=== PATIENT | female | born 1950 | race Caucasian/White ===

== ENCOUNTER 2020-11-02 21:19 | Inpatient (IN) | payer OTHER ==
[~2020-11-02] VITALS: Ht 162.6 cm; Wt 76.2 kg
[2020-11-02 23:56] LABS: HEMOGLOBIN 13.4 gm/dl (12.3-15.3); RED BLOOD COUNT 4.07 M/UL (4.00-5.10); WHITE BLOOD COUNT 13.3 K/UL (4.5-11.0)
[2020-11-03] MEDS ORDERED: AMLODIPINE BESY10 MG PO (02:12)
[2020-11-03] MEDS ORDERED: HYGROTON TAB 2525 MG PO (02:13)
[2020-11-03] MEDS ORDERED: VALSARTAN320 MG PO (02:13)
[2020-11-03] MEDS ORDERED: PRILOSEC OTC20 MG PO (02:14)
[2020-11-03 08:08] LABS: HEMOGLOBIN 12.1 gm/dl (12.3-15.3); RED BLOOD COUNT 3.74 M/UL (4.00-5.10); WHITE BLOOD COUNT 9.4 K/UL (4.5-11.0)
== END 2020-11-04 00:11 | disposition short-term general hospital (02) | DRG 280 ==
LOC: ER1 21:19 → PROG CARE 11-03 00:56 → CDU 11-03 00:56 → PROG CARE 11-03 02:21
PROVIDERS: Internal Medicine; Physician Assistant; ADMIT Internal Medicine
PROC: 4A023N7 Measurement of Cardiac Sampling and Pressure, Left Heart, Percutaneous Approach (ICD-10-PCS; principal; 2020-11-03)
PROC: B211YZZ Fluoroscopy of Multiple Coronary Arteries using Other Contrast (ICD-10-PCS; 2020-11-03)
PROC: B215YZZ Fluoroscopy of Left Heart using Other Contrast (ICD-10-PCS; 2020-11-03)
PROC: B41FYZZ Fluoroscopy of Right Lower Extremity Arteries using Other Contrast (ICD-10-PCS; 2020-11-03)
DX: I21.4 Non-ST elevation (NSTEMI) myocardial infarction (principal); I50.21 Acute systolic (congestive) heart failure; N17.9 Acute kidney failure, unspecified; I13.10 Hypertensive heart and chronic kidney disease without heart failure, with stage 1 through stage 4 chronic kidney disease, or unspecified chronic kidney disease; Z20.822 Contact with and (suspected) exposure to COVID-19; I25.10 Atherosclerotic heart disease of native coronary artery without angina pectoris; K21.9 Gastro-esophageal reflux disease without esophagitis; I25.5 Ischemic cardiomyopathy; N18.30 Chronic kidney disease, stage 3 unspecified; F17.210 Nicotine dependence, cigarettes, uncomplicated; Z85.3 Personal history of malignant neoplasm of breast; Z79.899 Other long term (current) drug therapy; Z82.49 Family history of ischemic heart disease and other diseases of the circulatory system
CPT/HCPCS: 36415; 71046; 80048; 80053; 80061; 82436; 82550; 82553; 83036; 83605; 83735; 83874; 83880; 83935; 84100; 84133; 84300; 84439; 84443; 84484; 84550; 85025; 85027; 85347; 85379; 85610; 85730; 86140; 93005; 99152; 99153; 99285; C1769; C1887; C1894; J1644; J1940; J2250; J3010; J7030; J7040; Q9965; U0002

== ENCOUNTER 2021-05-12 17:03 | Inpatient (IN) | payer OTHER ==
[~2021-05-12] VITALS: Ht 167.6 cm
[~2021-05-12 17:03] MED LIST: AMLODIPINE BESY10 MG PO; HYGROTON TAB 2525 MG PO; PRILOSEC OTC20 MG PO; VALSARTAN320 MG PO
[2021-05-12 17:49] LABS: HEMOGLOBIN 12.8 gm/dl (12.3-15.3); RED BLOOD COUNT 3.85 M/UL (4.00-5.10)
[2021-05-12 18:06] LABS: WHITE BLOOD COUNT 32.8 K/UL (4.5-11.0)
[2021-05-13 03:01] LABS: HEMOGLOBIN 10.1 gm/dl (12.3-15.3); RED BLOOD COUNT 3.01 M/UL (4.00-5.10); WHITE BLOOD COUNT 23.5 K/UL (4.5-11.0)
[2021-05-13] MEDS ORDERED: SPIRONOLACTONE25 MG PO (11:01)
[2021-05-13] MEDS ORDERED: CLOPIDOGREL75 MG PO (11:01)
[2021-05-13] MEDS ORDERED: SUCRALFATE1 GM PO (11:01)
[2021-05-13] MEDS ORDERED: ELIQUIS2.5 MG PO (11:02)
[2021-05-13] MEDS ORDERED: ASPIRIN EC81 MG PO (11:03)
[2021-05-13] MEDS ORDERED: ATORVASTATIN CA20 MG PO (11:17)
--- NOTE | 2021-05-14 00:26 | NUR ---
2300- MD CAME TO BEDSIDE TO EXAMINE PATIENT. GLUCOSE WAS 148. HR WAS DOWN TO 110'S AFTER DEMEROL GIVEN. BLOOD PRESSURE IN THE 90'S. THE PATIENT WAS NOT RESPONDING TO MD'S QUESTIONS; NOR HAD SHE BEEN RESPONDING TO MINE ALTHOUGH SON STATED THE PATIENT HAS NOT BEEN LIKE "THIS" (SHAKING, TENSE, NOT REPLYING.) PATIENTS PUPILS WERE EQUAL AND REACTIVE TO LIGHT. TEMPERATURE WAS CHECKED AND AXILLARY IT WAS 98.1. MOORE WAS SWITCHED TO TEMP SENSOR MOORE AND TEMP IS 101.2. TYLENOL WAS GIVEN THROUGH HER PEG TUBE WHICH WAS APPROVED TO USE PER GI IN PROGRESS NOTES. NO NEW ORDERS WERE GIVEN FROM DR. KELLEY.
[2021-05-14 03:57] LABS: HEMOGLOBIN 9.1 gm/dl (12.3-15.3); RED BLOOD COUNT 2.73 M/UL (4.00-5.10)
[2021-05-14 03:59] LABS: WHITE BLOOD COUNT 17.4 K/UL (4.5-11.0)
[2021-05-14 05:19] LABS: ACINETOBACTER BAUMANNII Not Detected (Negative); CANDIDA ALBICANS Not Detected (Negative); CANDIDA KRUSEI Not Detected (Negative); CANDIDA TROPICALIS Not Detected (Negative); ENTEROCOCCUS Not Detected (Negative); ESCHERICHIA COLI Not Detected (Negative); HAEMOPHILUS INFLUENZAE Not Detected (Negative); KLEBSIELLA OXYTOCA Not Detected (Negative); KLEBSIELLA PNEUMONIAE Not Detected (Negative); KPC-CARBAPENEM-RESISTANCE GENE Not Detected (Negative); PROTEUS Not Detected (Negative); PSEUDOMONAS AERUGINOSA Not Detected (Negative); SERRATIA MARCESANS Not Detected (Negative); STAPHYLOCOCCUS AUREUS Not Detected (Negative); STREP AGALACTIAE (GROUP B) Not Detected (Negative); STREP PYOGENES (GROUP A) Not Detected (Negative); STREPTOCOCCUS Not Detected (Negative); vanA/B (VANCOMYCIN RESIST GENE Not Detected (Negative)
[2021-05-14 06:33] LABS: STAPHYLOCOCCUS DETECTED (Negative); mecA (METHICILLIN RESIST GENE DETECTED (Negative)
[2021-05-15 04:33] LABS: HEMOGLOBIN 8.5 gm/dl (12.3-15.3); RED BLOOD COUNT 2.66 M/UL (4.00-5.10); WHITE BLOOD COUNT 16.8 K/UL (4.5-11.0)
[2021-05-16 04:12] LABS: HEMOGLOBIN 8.6 gm/dl (12.3-15.3); RED BLOOD COUNT 2.68 M/UL (4.00-5.10); WHITE BLOOD COUNT 13.5 K/UL (4.5-11.0)
[2021-05-17 11:06] LABS: RED BLOOD COUNT 2.93 M/UL (4.00-5.10)
[2021-05-17 11:07] LABS: HEMOGLOBIN 9.2 gm/dl (12.3-15.3); WHITE BLOOD COUNT 9.3 K/UL (4.5-11.0)
[2021-05-18 04:12] LABS: HEMOGLOBIN 10.5 gm/dl (12.3-15.3); WHITE BLOOD COUNT 10.6 K/UL (4.5-11.0)
[2021-05-18 04:20] LABS: RED BLOOD COUNT 3.34 M/UL (4.00-5.10)
[2021-05-19 08:25] LABS: HEMOGLOBIN 9.2 gm/dl (12.3-15.3)
[2021-05-19 08:26] LABS: RED BLOOD COUNT 2.93 M/UL (4.00-5.10); WHITE BLOOD COUNT 7.2 K/UL (4.5-11.0)
[2021-05-19 08:41] LABS: BUN/CREATININE RATIO 13 (0-10)
[2021-05-20 03:53] LABS: HEMOGLOBIN 9.9 gm/dl (12.3-15.3); RED BLOOD COUNT 3.17 M/UL (4.00-5.10); WHITE BLOOD COUNT 7.6 K/UL (4.5-11.0)
[2021-05-20 04:15] LABS: BUN/CREATININE RATIO 16 (0-10)
[2021-05-21] MEDS ORDERED: MULTIVITAM9 MG/15 ML GT (13:30)
[2021-05-21] MEDS ORDERED: ASPIRIN81 MG GT (13:30)
[2021-05-21] MEDS ORDERED: LOPRESSOR 25 MG25 MG PEG (13:30)
[2021-05-21] MEDS ORDERED: FERROUS SU300 MG/5 M GT (13:30)
== END 2021-05-21 16:50 | disposition home or self-care (01) | DRG 871 ==
LOC: ER1 17:03 → CDU 18:38 → PROG CARE 18:38 → ZEROF 18:38 → PROG CARE 19:58 → CDU 20:11 → 3 EAST 20:47 → ZEROF 20:50 → CDU 05-13 08:14 → PROG CARE 05-13 19:12
PROVIDERS: Emergency Medicine; Internal Medicine; Internal Medicine Nephrology; ADMIT Internal Medicine Infectious Disease
PROC: 5A0935A Assistance with Respiratory Ventilation, Less than 24 Consecutive Hours, High Flow/Velocity Cannula (ICD-10-PCS; 2021-05-12)
PROC: 3E033XZ Introduction of Vasopressor into Peripheral Vein, Percutaneous Approach (ICD-10-PCS; principal; 2021-05-13)
PROC: B24BZZZ Ultrasonography of Heart with Aorta (ICD-10-PCS; 2021-05-13)
PROC: 3E0G76Z Introduction of Nutritional Substance into Upper GI, Via Natural or Artificial Opening (ICD-10-PCS; 2021-05-15)
PROC: 0DP68UZ Removal of Feeding Device from Stomach, Via Natural or Artificial Opening Endoscopic (ICD-10-PCS; 2021-05-16)
PROC: 0DH63UZ Insertion of Feeding Device into Stomach, Percutaneous Approach (ICD-10-PCS; 2021-05-16)
PROC: 30233N1 Transfusion of Nonautologous Red Blood Cells into Peripheral Vein, Percutaneous Approach (ICD-10-PCS; 2021-05-17)
DX: R65.21 Severe sepsis with septic shock (principal); A41.9 Sepsis, unspecified organism; J69.0 Pneumonitis due to inhalation of food and vomit; J18.9 Pneumonia, unspecified organism; N17.0 Acute kidney failure with tubular necrosis; I63.89 Other cerebral infarction; E87.0 Hyperosmolality and hypernatremia; K94.23 Gastrostomy malfunction; G81.94 Hemiplegia, unspecified affecting left nondominant side; E87.1 Hypo-osmolality and hyponatremia; E87.2 Acidosis; G93.40 Encephalopathy, unspecified; Z20.822 Contact with and (suspected) exposure to COVID-19; E86.0 Dehydration; I25.10 Atherosclerotic heart disease of native coronary artery without angina pectoris; R47.1 Dysarthria and anarthria; R13.10 Dysphagia, unspecified; I25.5 Ischemic cardiomyopathy; I12.9 Hypertensive chronic kidney disease with stage 1 through stage 4 chronic kidney disease, or unspecified chronic kidney disease; N18.30 Chronic kidney disease, stage 3 unspecified; K21.9 Gastro-esophageal reflux disease without esophagitis; R47.81 Slurred speech; Y83.8 Other surgical procedures as the cause of abnormal reaction of the patient, or of later complication, without mention of misadventure at the time of the procedure; Z95.1 Presence of aortocoronary bypass graft; Z85.3 Personal history of malignant neoplasm of breast; Z90.10 Acquired absence of unspecified breast and nipple; Z82.49 Family history of ischemic heart disease and other diseases of the circulatory system; Z88.6 Allergy status to analgesic agent; Z86.11 Personal history of tuberculosis
CPT/HCPCS: ECHO; 0240U; 36415; 36430; 36600; 51701; 70450; 71045; 80048; 80053; 81001; 82550; 82553; 82728; 82803; 82962; 83036; 83540; 83550; 83605; 83735; 83874; 83880; 84100; 84484; 85018; 85025; 86140; 86850; 86900; 86901; 86920; 87040; 87077; 87150; 87186; 93005; 93306; 94640; 94664; 94760; 96374; 96375; 97110; 97110-GP-CQ; 97162; 97167; 97530; 99285; C9113; J0692; J1170; J1644; J2020; J2405; J2543; J3480; J7050; P9016; Q9967